=== PATIENT | female | born 1970 | race Caucasian/White ===

== ENCOUNTER 2016-12-04 14:22 | Emergency (ER) | payer BC ==
[~2016-12-04] VITALS: Ht 170.2 cm; Wt 97.2 kg
[~2016-12-04 14:22] MED LIST: ACCUPRIL10 MG PO; ASPIR-LOW81 MG PO; CHONDROITIN; CYMBALTA60 MG PO; DAILY VALUE1 EACH PO; DOMP10T PO; DOMPERIDONE1 GM PO; FIORICET,ESG1 TABLET PO; GLUCOSAMINE; HYDROCODON-ACE1 EAC7 PO; HYDROCODON-ACE1 EAC8 PO; KEPPRA XR500 MG; KEPPRA XR500 MG PO; KEPPRA XR750 MG PO; KEPPRA500 MG PO; KEPPRA750 MG PO; LAMICTAL200 MG PO; LOVENOX40 MG/0.4 SC; MOTRIN800 MG PO; MULTIVITAMIN1 EAC2 PO; OXYCODONE-ACET1 EACH PO; PERCOCET 5/31 TABLET PO; PLAVIX75 MG PO; PROTONIX40 MG PO; QUINAPRIL HCL10 MG PO; REGLAN10 MG PO; TOPAMAX100 MG PO; TROKENDI XR200 MG PO; TYLENOL REGULA325 MG PO; Topamax PO; VALIUM5 MG PO; VERAPAMIL HCL120 MG PO; ZOCOR20 MG PO; ZOCOR40 MG PO; ZOFRAN4 MG PO
[2016-12-04 15:54] LABS: EOSINOPHIL (%) 0.3 % (0-5); HEMATOCRIT 44.8 % (36.0-46.0); IMMATURE GRANULOCYTE (%) 0.2 % (0.0-0.7); LYMPHOCYTE COUNT 1.7 K/uL (1.0-2.8); MCH 30.9 PG (29.0-34.0); MCHC 33.9 G/DL (30.0-36.0); MCV 91.1 FL (83-99); MEAN PLAT.VOLUME 9.3 uM^3 (9.5-12.4); MONOCYTE (%) 7.7 % (3-12); MONOCYTE COUNT 0.5 K/uL (0-0.8); NEUTROPHIL (%) 64.7 % (45-76); PLATELET COUNT 318 K/uL (156-360); RBC DIS.WIDTH-CV 11.5 % (11.8-14.6); RBC DIS.WIDTH-SD 38.4 % (39-53); RED BLOOD COUNT 4.92 M/uL (3.80-5.20); WHITE BLOOD COUNT 6.2 K/uL (4.1-10.2)
[2016-12-04 16:22] LABS: ALKALINE PHOSPHATASE 64 IU/L (3-129); ANION GAP 9 MEQ/L (2-14); CHLORIDE 109 MEQ/L (99-109); GFR ESTIMATE (CALCULATED) > 59 mL/min/; GLUCOSE 82 mg/dL (70-99); POTASSIUM 3.7 MEQ/L (3.7-5.4); SAMPLE HEMOLYSIS CHECK 0; SAMPLE ICTERIC CHECK 0; SAMPLE LIPEMIA CHECK 0; SODIUM 141 MEQ/L (136-147); TOTAL BILIRUBIN 0.9 MG/DL (0.0-1.0); UREA NITROGEN (BUN) 15 mg/dL (9-23)
[2016-12-04 16:50] LABS: CK-MB 1.5 ng/mL (0.0-4.9)
[2016-12-04 17:10] LABS: CREATINE KINASE 99 IU/L (1-294); TOTAL CK 99 IU/L (1-294)
[2016-12-04 17:52] VITALS: BP 139/79
== END 2016-12-04 17:57 | disposition home or self-care (01) ==
LOC: EME 14:22
PROVIDERS: Emergency Medicine
DX: G40.909 Epilepsy, unspecified, not intractable, without status epilepticus (principal); I10 Essential (primary) hypertension; E78.5 Hyperlipidemia, unspecified; K21.9 Gastro-esophageal reflux disease without esophagitis; Z86.73 Personal history of transient ischemic attack (TIA), and cerebral infarction without residual deficits
CPT/HCPCS: 80053; 80175 90; 82550; 82553; 85025; 93005; 99281; 99284; J2250

== ENCOUNTER 2017-08-24 11:32 | Day surgery (SDC) | payer BC ==
[~2017-08-24] VITALS: Ht 170.2 cm; Wt 95.2 kg
[~2017-08-24 11:32] MED LIST changes: +ASPIR 8181 M1 PO; +BOTOX200 UNIT IJ; +LIPITOR20 MG PO; +METAMUCIL POWD822 G1 PO; +OSTEO BI-FLEX1 EAC1 PO; +TROKENDI XR50 MG PO; -VERAPAMIL HCL120 MG PO; +VERAPAMIL HCL180 MG PO; +VITAMIN D-32000 UNI2 PO; +ZOFRAN ODT4 MG PO; -ZOFRAN4 MG PO
[2017-08-24 12:20] VITALS: BP 132/74
[2017-08-24 16:20] VITALS: BP 129/79
[2017-08-24 17:14] VITALS: BP 118/68
== END 2017-08-24 17:28 | disposition home or self-care (01) ==
LOC: SDC 11:32
DX: M17.12 Unilateral primary osteoarthritis, left knee (principal); M23.42 Loose body in knee, left knee; R26.89 Other abnormalities of gait and mobility; M25.562 Pain in left knee; I10 Essential (primary) hypertension; Z86.73 Personal history of transient ischemic attack (TIA), and cerebral infarction without residual deficits; G40.909 Epilepsy, unspecified, not intractable, without status epilepticus; G43.809 Other migraine, not intractable, without status migrainosus; Z98.890 Other specified postprocedural states; I65.23 Occlusion and stenosis of bilateral carotid arteries; Z90.49 Acquired absence of other specified parts of digestive tract; Z90.710 Acquired absence of both cervix and uterus; Z82.61 Family history of arthritis; Z83.49 Family history of other endocrine, nutritional and metabolic diseases; Z88.5 Allergy status to narcotic agent; Z91.09 Other allergy status, other than to drugs and biological substances; Z79.82 Long term (current) use of aspirin; X50.1XXA Overexertion from prolonged static or awkward postures, initial encounter
CPT/HCPCS: J0131; J0171; J1100; J1885; J2250; J2270; J2405; J3010; S0020

== ENCOUNTER 2017-09-27 15:55 | Emergency (ER) | payer BC ==
[~2017-09-27] VITALS: Ht 167.6 cm; Wt 99.4 kg
[2017-09-27 16:08] LABS: BASOPHIL (%) 0.4 % (0-1); EOSINOPHIL (%) 0.7 % (0-5); HEMOGLOBIN 14.2 G/DL (11.9-15.5); IMMATURE GRANULOCYTE (%) 0.2 % (0.0-0.7); LYMPHOCYTE (%) 35.4 % (15-42); LYMPHOCYTE COUNT 1.6 K/uL (1.0-2.8); MCH 31.5 PG (29.0-34.0); MCHC 34.6 G/DL (30.0-36.0); MCV 90.9 FL (83-99); MONOCYTE (%) 10.6 % (3-12); MONOCYTE COUNT 0.5 K/uL (0-0.8); NEUTROPHIL (%) 52.7 % (45-76); NEUTROPHIL COUNT 2.4 K/uL (1.8-6.4); PLATELET COUNT 279 K/uL (156-360); RBC DIS.WIDTH-CV 11.9 % (11.8-14.6); RBC DIS.WIDTH-SD 39.1 % (39-53); RED BLOOD COUNT 4.51 M/uL (3.80-5.20); WHITE BLOOD COUNT 4.5 K/uL (4.1-10.2)
[2017-09-27 16:19] LABS: AMYLASE 47 IU/L (1-118); CHLORIDE 111 mEq/L (99-109); POTASSIUM 3.7 mEq/L (3.7-5.4); SODIUM 142 mEq/L (136-147)
[2017-09-27 16:21] LABS: GLUCOSE 91 mg/dL (70-99); PTT 27.5 SEC (25-37)
[2017-09-27 16:24] LABS: SERUM ETHYL ALCOHOL < 10 mg/dL
[2017-09-27 16:25] LABS: CREATININE 0.9 mg/dL (0.6-1.3); GFR ESTIMATE (CALCULATED) > 59 mL/min/; UREA NITROGEN (BUN) 13 mg/dL (9-23)
[2017-09-27 16:28] LABS: LIPASE 42 U/L (1.0-51.0)
[2017-09-27 16:33] LABS: TROP-I INTERPRETATION NEGATIVE; TROPONIN-I < 0.01 ng/mL (0.0-0.30)
[2017-09-27 16:34] LABS: QUANTITATIVE HCG < 4.0 MIU/ML
[2017-09-27 17:33] LABS: APPEARANCE CLEAR ((CLEAR)); BILIRUBIN NEGATIVE; BLOOD NEGATIVE; COLOR STRAW ((YELLOW)); GLUCOSE (STRIP) NEGATIVE; KETONES NEGATIVE; LEUKOCYTES NEGATIVE; NITRITE NEGATIVE; PROTEIN (STRIP) NEGATIVE; SPECIFIC GRAVITY 1.005 (1.000-1.030); UCUL ADDED? NO; UROBILINOGEN 0.2 MG/DL (0.2-1.0)
[2017-09-27 17:53] LABS: AMPHETAMINE NEGATIVE (500 ng/mL); BARBITURATES NEGATIVE (200 ng/mL); BENZODIAZEPINES NEGATIVE (150 ng/mL); BUPRENORPHINE NEGATIVE (10 ng/mL); COCAINE NEGATIVE (150 ng/mL); METHADONE NEGATIVE (200 ng/mL); METHAMPHETAMINE NEGATIVE (500 ng/mL); OPIATES (MORPHINE) NEGATIVE (100 ng/mL); OXYCODONE NEGATIVE (100 ng/mL); PHENCYCLIDINE NEGATIVE (25 ng/mL); PROPOXYPHENE NEGATIVE (300 ng/mL); THC CANNABINOIDS NEGATIVE (50 ng/mL); TRICYCLIC ANTIDEPRESSANTS NEGATIVE (300 ng/mL)
[2017-09-27 18:25] VITALS: BP 152/111
== END 2017-09-27 18:33 | disposition short-term general hospital (02) ==
LOC: EME 15:55
PROVIDERS: Emergency Medicine
DX: I63.9 Cerebral infarction, unspecified (principal); I65.22 Occlusion and stenosis of left carotid artery; I10 Essential (primary) hypertension; E78.5 Hyperlipidemia, unspecified; K21.9 Gastro-esophageal reflux disease without esophagitis; G40.909 Epilepsy, unspecified, not intractable, without status epilepticus; Z79.82 Long term (current) use of aspirin; Z95.828 Presence of other vascular implants and grafts; Z96.89 Presence of other specified functional implants; Z95.810 Presence of automatic (implantable) cardiac defibrillator; Z86.73 Personal history of transient ischemic attack (TIA), and cerebral infarction without residual deficits; Z90.49 Acquired absence of other specified parts of digestive tract; Z88.5 Allergy status to narcotic agent; Z91.048 Other nonmedicinal substance allergy status
CPT/HCPCS: 70450; 70496; 70498; 80047; 80048; 81003; 82150; 83690; 84484; 84702; 85025; 85610; 85730; 86850; 86900; 86901; 99281; 99285; G0480

== ENCOUNTER 2017-12-23 09:41 | Emergency (ER) | payer BC ==
[~2017-12-23] VITALS: Ht 170.2 cm; Wt 99.7 kg
[2017-12-23 13:08] VITALS: BP 127/79
== END 2017-12-23 13:08 | disposition home or self-care (01) ==
LOC: EME 09:41
DX: G43.909 Migraine, unspecified, not intractable, without status migrainosus (principal); E78.5 Hyperlipidemia, unspecified; I10 Essential (primary) hypertension; K21.9 Gastro-esophageal reflux disease without esophagitis; Z86.73 Personal history of transient ischemic attack (TIA), and cerebral infarction without residual deficits; G40.909 Epilepsy, unspecified, not intractable, without status epilepticus; Z88.5 Allergy status to narcotic agent
CPT/HCPCS: J0780; J1100; J1200; J1885; J7030